=== PATIENT | male | born 1945 | race Caucasian/White ===

== ENCOUNTER 2016-07-15 09:22 | Day surgery (SDC) | payer MEDICARE ==
--- NOTE | 2016-07-15 06:28 | History and Physical Report ---
DATE OF EVALUATION: 07/15/2016. CHIEF COMPLAINT AND HISTORY OF CHIEF COMPLAINT: This patient presents with an intractable lumbar radiculitis. On 07/02/2016 a spinal cord stimulator trial was conducted with up to 75 to 90% pain control. Due to the failure of all therapies and the success of the stimulator trial the patient presents today for implantation of a permanent system. PAST MEDICAL HISTORY: Hypertension. REVIEW OF SYSTEMS: The patient seems appropriate and in no acute distress. The remainder of the systems review shows glasses, blood pressure problems, diverticular disease, irritable bowel syndrome, degenerative arthritis. SOCIAL HISTORY: Noncontributory. FAMILY HISTORY: Coronary artery disease, hypertension, cancer. PAST SURGICAL HISTORY: Hernia repair. ALLERGIES: None listed. MEDICATIONS ON ADMISSION: To be provided. PHYSICAL EXAMINATION: General: Height is 5 feet, 5 inches. Weight is 270 pounds. Vital Signs: Blood pressure is unavailable. HEENT: Within normal limits. Lungs: Clear. Heart: Regular rate and rhythm. Abdomen: Nontender. Musculoskeletal: Examination of the musculoskeletal system shows diffuse tenderness throughout the lumbar spine. Range of motion does seem to produce pain throughout the low back and extending into both legs, somewhat more right than left. Ambulation: No assistive device utilized. Neurologic: Cranial nerves are intact. IMPRESSION: LUMBAR RADICULITIS, ICD10 CODE M54.16 AND M54.17. PLANS: This patient is here after the failure of all therapies for the implantation of a permanent spinal cord stimulator. The potential risks, side effects, and complications have all been reviewed and discussed including nerve root injury and spinal headache. Instructions and education have been provided. The patient understands and has agreed. The procedure will be considered outpatient, although an overnight stay can be evaluated. Roby Ferris D.O. Date Time JOB NUMBER: [id number] cc: Jing Moss
[~2016-07-15 09:22] MED LIST: ACETAMINOPHEN 1000MG/100 ML PREMIX IV ONE; CEFAZOLIN 2 Gram 50 ML IVPB ONE; FAMOTIDINE 20MG TABLET PO ONE; MECLIZINE 25 MG TABLET PO ONE; METOCLOPRAMIDE 10 MG TABLET PO ONE
[2016-07-15] MEDS ORDERED: METOCLOPRAMIDE HCL 10 MG/2 ML VIAL IVP PRN (13:10)
[2016-07-15] MEDS ORDERED: ACETAMINOPHEN 325 MG TAB PO PRN ×2 (13:10)
[2016-07-15] MEDS ORDERED: SENNOSIDES/DOCUSATE SODIUM UD CAPSULE PO PRN ×2 (13:10)
[2016-07-15] MEDS ORDERED: HYDROCODONE/APAP 7.5/325MG TABLET PO PRN ×2 (13:10)
[2016-07-15] MEDS ORDERED: OXYCODONE/APAP 10MG-325MG TABLET PO PRN ×2 (13:10)
[2016-07-15] MEDS ORDERED: METOCLOPRAMIDE 10 MG TABLET PO PRN (13:10)
[2016-07-15] MEDS ORDERED: TEMAZEPAM 15 MG CAPSULE PO PRN ×2 (13:10)
[2016-07-15] MEDS ORDERED: DIPHENHYDRAMINE HCL IV 50 MG/ML VIAL IVP PRN ×2 (13:10)
[2016-07-15] MEDS ORDERED: AL HYDROX/MAG HYDROX 30ML UD PO PRN (13:10)
[2016-07-15] MEDS ORDERED: HYDROMORPHONE HCL 2 MG/ML VIAL IM PRN (13:10)
[2016-07-15] MEDS ORDERED: HYDROMORPHONE HCL 1 MG/ML CPJ IM PRN (13:10)
[2016-07-15] MEDS ORDERED: DIPHENHYDRAMINE HCL 25 MG CAPSULE PO PRN ×2 (13:10)
[2016-07-15] MEDS ORDERED: KETAMINE HCL 10 MG/ML (20ML) VIAL *PACU IV ONE (13:23)
[2016-07-15] MEDS ORDERED: LIDOCAINE 2% MDV (20MG/ML) 20ML VIAL IV ONE (13:23)
[2016-07-15] MEDS ORDERED: FLUMAZENIL 1MG/10ML VIAL IV ONE (13:23)
[2016-07-15] MEDS ORDERED: MIDAZOLAM HCL 2MG/2ML VIAL IV ONE (13:23)
[2016-07-15] MEDS ORDERED: FENTANYL PF 100MCG/2ML VIAL IV ONE (13:23)
[2016-07-15] MEDS ORDERED: PROPOFOL 10 MG/ML VIAL IV ONE (13:23)
[2016-07-15] MEDS ORDERED: LIDOCAINE 1% W/EPI 1:200,000 MPF 30ML SQ ONE (13:46)
[2016-07-15] MEDS ORDERED: BUPIVACAINE 0.5% W/EPI MPF 30 ML VIAL IVP ONE (13:46)
[2016-07-15] MEDS ORDERED: CEFAZOLIN 1G VIAL IM ONE (13:46)
[2016-07-15] MEDS ORDERED: CEFAZOLIN 2 Gram 50 ML IVPB SCH (19:00)
[2016-07-15] MEDS ORDERED: 0.9 % SODIUM CHLORIDE 10ML SYR IVP SCH (22:00)
[2016-07-16] MEDS ORDERED: CHLORTHALIDONE 25 MG TABLET PO SCH (10:00)
[2016-07-16] MEDS ORDERED: TAMSULOSIN HCL 0.4 MG CAP.ER.24H PO SCH (10:00)
[2016-07-16] MEDS ORDERED: METOPROLOL SUCC 50 MG TABLET PO SCH (10:00)
[2016-07-16] MEDS ORDERED: LISINOPRIL 20 MG TABLET PO SCH (10:00)
[2016-07-16] MEDS ORDERED: VENLAFAXINE ER 75 MG CAPSULE PO SCH (10:00)
--- NOTE | 2016-07-16 15:41 | Operative Note - [place] ---
DATE OF SURGERY: 07/15/16 PREOPERATIVE DIAGNOSIS: INTRACTABLE LUMBAR RADICULITIS, ICD-10 CODE = M54.16 AND M54.17. OPERATION: 1. FLUOROSCOPICALLY-GUIDED EPIDURAL ACCESS RIGHT T11/12, PLACEMENT OF SPINAL CORD STIMULATOR LEAD 1, A [employer] IN[employer] 16 WITH 16 ELECTRODES POSITIONED LEFT T7. 2. COMPLEX PROGRAMMING LEAD 1, 20 MINUTES. 3. FLUOROSCOPICALLY-GUIDED EPIDURAL ACCESS RIGHT, T12/L1. PLACEMENT OF SPINAL CORD STIMULATOR LEAD 2, A [employer] 16 WITH 16 ELECTRODES POSITIONED RIGHT T7. 4. COMPLEX PROGRAMMING LEAD 2, 20 MINUTES. 5. INCISION, SUBCUTANEOUS DISSECTION, AND ANCHORING LEAD 1 AND LEAD 2 TO DEEP FASCIA USING A [employer] LOCKING ANCHOR. 6. INCISION, SUBCUTANEOUS DISSECTION, AND CREATION OF A SUBCUTANEOUS POUCH RIGHT POSTERIOR GLUTEAL MARGIN FOR PLACEMENT OF GENERATOR IDENTIFIED A [employer] SCIENTIFIC PROGRAMMABLE RECHARGEABLE INTERNAL PULSE GENERATOR. 7. TUNNELING BETWEEN POUCHES. PLACEMENT OF EXTERNAL PORTION OF LEAD 1 AND LEAD 2 INTO GENERATOR POUCH, EACH LEAD INTERFACED WITH BIFURCATED EXTENSION, EACH BIFURCATED EXTENSION INTERFACED TO GENERATOR. 8. PLACEMENT OF GENERATOR INTO POUCH SECURING TO FASCIA USING NONABSORBABLE SUTURE. PLACEMENT OF LEADS INTO POUCH. CLOSURE OF INCISIONS VICRYL FOR FASCIA AND A RUNNING SUBCUTICULAR VICRYL FOR SKIN. DERMABOND CLOSURE. 9. COMPLEX RECOVERY ROOM PROGRAMMING INTERNAL GENERATOR,HOME USE TWO SIMULATORS , 20 MINUTES. SURGEON: PATRICIA PÉREZ D.O. ANESTHESIA: LOCAL SEDATION. ANESTHESIA PROVIDER: COLUMBA ROWLEY CRNA. INDICATION: This patient presents with a history of an intractable lumbar radiculitis. Due to the failure of all therapies, a spinal cord stimulator trial was conducted with 75 to 90% pain control. Due to the failure of all therapies and the success of the trial, he is here for permanent implantation. PROCEDURE: Intravenous line, vital sign monitoring, IV sedation by Anesthesia, patient position prone. Sterile prep, sterile technique. Under imaging, the epidural interspace right of the midline at 11 and 05/28 both infiltrated. Two separate curved access Epimed needles with [id number] into the epidural space. At 11/12, spinal cord stimulator lead 1, a [employer] Infinion 16 with 16 electrodes, positioned left of T7. With the epidural access right of the midline at 05/28, spinal cord stimulator lead 2, also a [employer] Infinion 16 with 16 electrodes, positioned right T7. Complex programming of lead 1, over 20 minutes followed by complex programming of lead 2 , over 20 minutes, ultimately resulting in patterns of stimulation across the back and into the legs; patient indicating we had all the areas of the pain. He was given the option to implant, continue to program, or remove; he opted to implant. Questions were repeated with the same response. The skin above and below the needles infiltrated, incision made, and subcutaneous dissection was conducted to the supraspinous fascia. The needles were removed and each lead was anchored to the supraspinous fascia with a [employer]. Each anchor was secured to the deep fascia with nonabsorbable suture. At the right posterior/superior gluteal margin or a site picked by the patient for the generator, skin infiltrated, incision made, and subcutaneous dissection was conducted to form a pouch of suitable size and depth. Antibiotic irrigation. Bovie for hemostasis. A tunneling tool was then used to carry the external portion of each lead into the generator pouch and each lead interfaced with the a bifurcated extension. Each bifurcated extension interfaced to the generator. The generator placed in the pouch and secured with a nonabsorbable suture. The leads placed in their own pouch and then both incisions were closed Vicryl for fascia and running subcuticular Vicryl for skin. A Dermabond closure system was then used to approximate the edges of the wound. He was transported to the Recovery Room stable showing no side-effects from the procedure or the sedation. He was monitored until stable. DISCHARGE INSTRUCTIONS: 1. The sites will remain clean and dry although the Dermabond will allow showering. 2. Standard medications resumed including the antibiotic, Levaquin, 500 mg once a day for 14 days. 3. The office will contact the patient at home to evaluate the sites in 5-7 days. During this period of time, his activities should stay low. No bend, push , pull, or lift. After the incisions are checked, he will be cleared for increasing slow progressive activities. All other instructions provided, numbers to contact, problems given. He will then be discharged. PATRICIA PÉREZ D.O. Date & Time cc: Dr. Kraus JOB NUMBER: [id number] [facility]
--- NOTE | 2016-07-17 14:56 | RADIOLOGY REPORT ---
EXAM: AP LUMBAR SPINE HISTORY: SPINAL CORD STIMULATOR IMPLANT. TECHNIQUE: AP view of the lumbar spine was obtained. Comparison: None. FINDINGS: Two stimulator leads overlie the mid thoracic spine extending to the T6-T7 level. Mild dextroconvex curvature of the thoracolumbar spine with at least moderate multilevel disk disease. IMPRESSION: TWO STIMULATOR LEADS OVERLIE THE SPINAL CANAL EXTENDING CEPHALAD TO THE T6-T7 LEVEL. JOB NUMBER: [id number] MTDD
== END 2016-07-15 15:50 | disposition home or self-care (01) ==
LOC: SUR 09:22 → MEDSURG 13:09 → SUR 15:50
PROVIDERS: ATTEND Pain Medicine Interventional Pain Medicine
DX: M54.16 Radiculopathy, lumbar region (principal); M54.17 Radiculopathy, lumbosacral region; I10 Essential (primary) hypertension; E78.00 Pure hypercholesterolemia, unspecified
CPT/HCPCS: 95972; 72020; 63685; 63650 ×2; 00400; J3010; J0690